=== PATIENT | female | born 1955 | race Caucasian/White ===

== ENCOUNTER 2016-07-22 14:46 | Emergency (ER) | payer OTHER ==
[2016-07-22 15:14] VITALS: BP 121/66
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
== END 2016-07-22 16:37 | disposition home or self-care (01) ==
LOC: UCEAST 14:46
DX: S96.912D Strain of unspecified muscle and tendon at ankle and foot level, left foot, subsequent encounter (principal); V89.2XXD Person injured in unspecified motor-vehicle accident, traffic, subsequent encounter; Z88.5 Allergy status to narcotic agent; Z72.0 Tobacco use
CPT/HCPCS: 99201; G0463

== ENCOUNTER 2018-04-13 17:21 | Emergency (ER) | payer OTHER ==
--- NOTE | 2018-04-13 17:43 | ED ---
GI/ HPI - HPI Summary HPI Summary: The pt is a 62 y/o female presenting to [facility] c/o bilateral flank pain since 1 week ago. She notes fever, chills, dysuria, increased frequency, urgency and back pain. She thought that her back was hurting due to shoveling snow. The pt was seen at [facility] today and referred to the ED to r/o pyelonephritis. She describes the sx as similar to having cystitis. The pain is rated 5/10 in severity. PMHx: Fibromuscular displasia for which she takes Clavix. She is visiting her mother from [place]. Home Medications Medication Instructions Recorded Confirmed Type Aspirin TAB* [Aspirin 325 MG TAB*] 07/22/16 History Ibuprofen [Advil Liqui-Gels] 2 DAILY 07/22/16 History [place]-3 Fatty Acids (Nf) [Fish Oil 07/22/16 History (NF)] - History of Current Complaint Chief Complaint: EDUrogenitalProblems Time Seen by Provider: 04/13/18 17:35 Stated Complaint: CHILLS/FEVER/FREQUENT&URGENT URINATION/BACK PAIN Hx Obtained From: Patient Onset/Duration: Started Weeks Ago - 1 week, Still Present Timing: Constant Severity: Moderate Current Severity: Moderate Pain Intensity: 5 Location of Pain: Flank - Bilateral Pain Radiates to: Back Associated Signs and Symptoms: Positive: Fever, Flank Pain, Chills - Allergy/Home Medications Allergies/Adverse Reactions: Allergies Allergy/AdvReac Type Severity Reaction Status Date / Time codeine AdvReac GI Upset Verified 04/13/18 19:37 PMH/Surg Hx/FS Hx/Imm Hx Previously Healthy: No Endocrine/Hematology History: Denies: Hx Diabetes, Hx Thyroid Disease Cardiovascular History: Reports: Other Cardiovascular Problems/Disorders - Bilateral carotid stents Denies: Hx Hypertension Respiratory History: Denies: Hx Asthma, Hx Chronic Obstructive Pulmonary Disease (COPD) GI History: Denies: Hx Ulcer Musculoskeletal History: Reports: Other Musculoskeletal History - Fibromuscular displasia - Cancer History Cancer Type, Location and Year: None reported - Surgical History Surgery Procedure, Year, and Place: Angioplasty x 4, tubal ligation Infectious Disease History: No Infectious Disease History: Denies: Hx Hepatitis, Hx Human Immunodeficiency Virus (HIV), Traveled Outside the [place] in Last 30 Days - Family History Known Family History: Positive: Cardiac Disease, Diabetes - Social History Occupation: Retired Lives: With Family Alcohol Use: Occasionally Substance Use Type: Reports: None Smoking Status (MU): Current Some Day Smoker Review of Systems Positive: Fever, Chills Positive: dysuria, frequency, flank pain - Bilateral , urgency Musculoskeletal: Other - Positive: Back pain All Other Systems Reviewed And Are Negative: Yes Physical Exam - Summary Physical Exam Summary: Appearance: The patient is well-nourished in no acute distress and in no acute pain. Skin: The skin is warm and dry and skin color reflects adequate perfusion. HEENT: The head is normocephalic and atraumatic. The pupils are equal and reactive. The conjunctivae are clear and without drainage. Nares are patent and without drainage. Mouth reveals moist mucous membranes and the throat is without erythema and exudate. The external ears are intact. The ear canals are patent and without drainage. The tympanic membranes are intact. Neck: The neck is supple with full range of motion and non-tender. There are no carotid bruits. There is no neck vein distension. Respiratory: Chest is non-tender. Lungs are clear to auscultation and breath sounds are symmetrical and equal. Cardiovascular: Heart is regular rate and rhythm. There is no murmur or rub auscultated. There is no peripheral edema and pulses are symmetrical and equal. Abdomen: The abdomen is soft and non-tender. There are normal bowel sounds heard in all four quadrants and there is no organomegaly palpated. Musculoskeletal: There is mild CVA tenderness noted. Extremities are non-tender with full range of motion. There is good capillary refill. There is no peripheral edema or calf tenderness elicited. Neurological: Patient is alert and oriented to person, place and time. The patient has symmetrical motor strength in all four extremities. Cranial nerves are grossly intact. Deep tendon reflexes are symmetrical and equal in all four extremities. Psychiatric: The patient has an appropriate affect and does not exhibit any anxiety or depression. Triage Information Reviewed: Yes Vital Signs On Initial Exam: Initial Vitals Temp Pulse Resp BP Pulse Ox 100.0 F 102 16 134/101 98 04/13/18 17:24 04/13/18 17:24 04/13/18 17:24 04/13/18 17:24 04/13/18 17:24 Vital Signs Reviewed: Yes Diagnostics - Vital Signs Vital Signs Temp Pulse Resp BP Pulse Ox 04/13/18 17:24 100.0 F 102 16 134/101 98 - Laboratory Result Diagrams: 04/13/18 18:01 04/13/18 18:01 Lab Statement: Any lab studies that have been ordered have been reviewed, and results considered in the medical decision making process. - CT Abd/Pel CT CT Interpretation Completed By: Radiologist Summary of CT Findings: IMPRESSION: No CT findings to correlate with patient's symptomatology. Specifically no obstructing renal or ureteral calculi. The ED physician reviewed this radiology report. GIGU Course/Dx - Course Course Of Treatment: Ms. Beckwith presented complaining of several days of bilateral flank pain. She started to feel chilled last night and realized she might have an infection. She did have some dysuria which she attributed to irritation secondary to recent sexual activity. She was nontoxic in appearance and her vital signs are stable here. Labs showed a mild leukocytosis and a positive urinalysis. She was given Cipro IV here in the emergency department and discharged on by mouth Cipro with the recommendation to follow-up if she worsens in any way. She remained stable and nontoxic here. - Diagnoses Provider Diagnoses: Pyelonephritis Discharge - Sign-Out/Discharge Documenting (check all that apply): Patient Departure - DC - Discharge Plan Condition: Stable Disposition: HOME Prescriptions: Ciprofloxacin TAB* [Cipro Tab*] 500 mg PO BID #20 tab Patient Education Materials: Kidney Infection (ED) Referrals: [facility] [Outside] Additional Instructions: Follow up with your PCP in 2 days Return to ED for any new or worsening symptoms - Billing Disposition and Condition Condition: STABLE Disposition: Home - Attestation Statements Document Initiated by Scribe: Yes Documenting Scribe: Neha Serra Provider For Whom Karen is Documenting (Include Credential): Dr. Luigi Epps MD Scribe Attestation: Neha Atkins , scribed for Dr. Luigi Epps MD on 04/13/18 at 2138. Scribe Documentation Reviewed: Yes Provider Attestation: The documentation as recorded by the Neha sanchez accurately reflects the service I personally performed and the decisions made by me, Dr. Luigi Epps MD Status of Scribe Document: Viewed
[2018-04-13 18:05] LABS: Urine Appearance Clear; Urine Blood 2+ (Negative); Urine Color Yellow; Urine Ketones Negative (Negative); Urine Protein Negative (Negative); Urine Red Blood Cell 3+(>10/hpf) (Absent); Urine Specific Gravity 1.008 (1.010-1.030); Urine Urobilinogen Negative (Negative); Urine White Blood Cell 2+(11-20/hpf) (Absent)
[2018-04-13 18:08] LABS: ABS Basophils 0 10^3/ul (0-0.2); ABS Eosinophils 0.1 10^3/ul (0-0.6); ABS Lymphocytes 0.9 10^3/ul (1.0-4.8); ABS Monocytes 1.2 10^3/ul (0-0.8); ABS Neutrophils 9.4 10^3/ul (1.5-7.7); ABS Nucleated RBC 0 10^3/ul; Eosinophil % 0.5 %; Hematocrit 35 % (35-47); Lymphocyte % 8.1 %; Mean Corpuscular HGB Conc 34 g/dl (31-36); Mean Corpuscular Hemoglobin 30 pg (27-31); Mean Corpuscular Volume 89 fL (80-97); Nucleated Red Blood Cells % 0; Platelet Count 277 10^3/ul (150-450); Red Blood Count 3.96 10^6/ul (4.00-5.40); Red Cell Distribution Width 13 % (10.5-15); White Blood Count 11.7 10^3/ul (3.5-10.8)
[2018-04-13] MEDS ORDERED: Ciprofloxacin 400MG IVPREMIX(* 400 MG/200 ML BAG IVPB ONE (19:35)
[2018-04-13 21:03] VITALS: BP 131/78
--- NOTE | 2018-04-16 06:16 | PN ---
Progress Note - Progress Note Date of Service: 04/13/18 Note: Pt. in ED 04/13 and started on Cipro for UTI. Urine culture today is growing staph saprophyticus susceptible to cipro. No change in treatment needed at this time.
== END 2018-04-13 21:12 | disposition home or self-care (01) ==
LOC: ED 17:21
DX: N10 Acute pyelonephritis (principal); N39.0 Urinary tract infection, site not specified; B95.7 Other staphylococcus as the cause of diseases classified elsewhere; Z88.5 Allergy status to narcotic agent; Z72.0 Tobacco use
CPT/HCPCS: 36415; 74176; 80053; 81003; 81015; 83605; 85025; 86140; 87077; 87086; 96365; 99283; J0744